=== PATIENT | male | born 1945 | race Caucasian/White ===

== ENCOUNTER 2018-05-14 16:08 | Emergency (ER) | payer MEDICARE ==
[2018-05-14 18:27] LABS: ABS Basophils 0.1 10^3/ul (0-0.2); ABS Eosinophils 0.1 10^3/ul (0-0.6); ABS Lymphocytes 2.3 10^3/ul (1.0-4.8); ABS Neutrophils 5.3 10^3/ul (1.5-7.7); ABS Nucleated RBC 0 10^3/ul; Eosinophil % 0.8 % (0-6); Hematocrit 43 % (42-52); Hemoglobin 14.6 g/dl (14.0-18.0); Lymphocyte % 26.1 % (25-47); Mean Corpuscular HGB Conc 34 g/dl (31-36); Mean Corpuscular Hemoglobin 30 pg (27-31); Mean Corpuscular Volume 87 fL (80-94); Mean Platelet Volume 7.5 um3 (7.4-10.4); Nucleated Red Blood Cells % 0; Platelet Count 245 10^3/ul (150-450); Red Blood Count 4.94 10^6/ul (4.00-5.40); Red Cell Distribution Width 13 % (10.5-15); White Blood Count 8.7 10^3/ul (3.5-10.8)
[2018-05-14 18:42] LABS: EGFR Non-African American 73.2 (>60)
[2018-05-14 21:00] LABS: Urine Appearance Clear; Urine Blood Negative (Negative); Urine Color Yellow; Urine Ketones Negative (Negative); Urine Protein Negative (Negative); Urine Specific Gravity 1.046 (1.010-1.030); Urine Urobilinogen Negative (Negative)
--- NOTE | 2018-05-14 21:00 | ED ---
Abdominal Pain/Male - HPI Summary HPI Summary: This pt is a 72 y/o male presenting to [facility] referred by Urgent Care for LLQ abd pain for the past 4 days. Pt reports he woke up 4 days ago with abd pain located on the left lower quadrant, slightly off to the left side of his belly button. His abd pain does not radiate. He states he had a CT abdomen/pelvis done today which showed inflammatory changes. Pt notes he has some abdominal distension. Denies fever, nausea, vomiting, urinary symptoms, constipation, diarrhea, decreased appetite. Denies any abdominal surgeries. No PMHx. - History of Current Complaint Chief Complaint: EDAbdPain Stated Complaint: LOWER ABD PAIN Time Seen by Provider: 05/14/18 20:50 Hx Obtained From: Patient Onset/Duration: Lasting Days, Still Present Timing: Lasting Days Severity Currently: Mild Pain Intensity: 3 Pain Scale Used: 0-10 Numeric Location: Discrete At: LLQ Radiates: No Aggravating Factor(s): Nothing Alleviating Factor(s): Nothing Associated Signs And Symptoms: Positive: Other - POS: abdomninal distension. Negative: Fever, Constipation, Urinary Symptoms, Decreased Appetite, Nausea, Vomiting, Diarrhea - Allergies/Home Medications Allergies/Adverse Reactions: Allergies Allergy/AdvReac Type Severity Reaction Status Date / Time No Known Allergies Allergy Verified 05/14/18 16:13 Home Medications: Home Medications Pravastatin Sodium 80 mg PO DAILY 05/14/18 [History Confirmed 05/14/18] PMH/Surg Hx/FS Hx/Imm Hx Endocrine/Hematology History: Denies: Hx Diabetes Cardiovascular History: Denies: Hx Hypertension, Hx Pacemaker/ICD Respiratory History: Denies: Hx Asthma, Hx Chronic Obstructive Pulmonary Disease (COPD) History: Denies: Hx Renal Disease Sensory History: Denies: Hx Hearing Aid Psychiatric History: Denies: Hx Panic Disorder Infectious Disease History: No Infectious Disease History: Denies: Traveled Outside the [place] in Last 30 Days - Family History Family History: mother with skin CA - Social History Alcohol Use: None Substance Use Type: Reports: None Smoking Status (MU): Never Smoked Tobacco Review of Systems Negative: Fever, Chills, Other - decreased appetite Positive: Abdominal Pain. Negative: Vomiting, Diarrhea, Nausea, Other - constipation Negative: dysuria, hematuria All Other Systems Reviewed And Are Negative: Yes Physical Exam - Summary Physical Exam Summary: Appearance: Well-appearing, Well-nourished, lying in bed comfortably Skin: Warm, dry, no obvious rash Eyes: sclera anicteric, no conjunctival pallor ENT: mucous membranes moist, pharynx appears normal Neck: Supple, nontender Respiratory: Clear to auscultation, no signs of respiratory distress Cardiovascular: Normal S1, S2. No murmurs. Normal distal pulses in tibial and radial bilaterally. Abdomen: Soft, tenderness to light palpation on left of umbilicus, normal active bowel sounds present Musculoskeletal: Normal, Strength/ROM Intact Neurological: A&Ox3, awake and alert, mentation is normal, speech is fluent and appropriate Psychiatric: affect is normal, does not appear anxious or depressed Triage Information Reviewed: Yes Vital Signs On Initial Exam: Initial Vitals Temp Pulse Resp BP Pulse Ox 97.4 F 86 16 174/97 95 05/14/18 16:10 05/14/18 16:10 05/14/18 16:10 05/14/18 16:10 05/14/18 16:10 Vital Signs Reviewed: Yes Diagnostics - Vital Signs Vital Signs Temp Pulse Resp BP Pulse Ox 05/14/18 20:30 97.2 F 65 16 169/87 97 05/14/18 18:58 98.2 F 74 16 166/82 95 05/14/18 16:10 97.4 F 86 16 174/97 95 - Laboratory Lab Results: Lab Results 05/14/18 05/14/18 05/14/18 Range/Units 18:05 18:06 18:06 WBC 8.7 (3.5-10.8) 10^3/ul RBC 4.94 (4.00-5.40) 10^6/ul Hgb 14.6 (14.0-18.0) g/dl Hct 43 (42-52) % MCV 87 (80-94) fL MCH 30 (27-31) pg MCHC 34 (31-36) g/dl RDW 13 (10.5-15) % Plt Count 245 (150-450) 10^3/ul MPV 7.5 (7.4-10.4) um3 Neut % (Auto) 61.5 (38-83) % Lymph % (Auto) 26.1 (25-47) % Archer % (Auto) 10.9 H (0-7) % Eos % (Auto) 0.8 (0-6) % Baso % (Auto) 0.7 (0-2) % Absolute Neuts (auto) 5.3 (1.5-7.7) 10^3/ul Absolute Lymphs (auto) 2.3 (1.0-4.8) 10^3/ul Absolute Monos (auto) 1.0 H (0-0.8) 10^3/ul Absolute Eos (auto) 0.1 (0-0.6) 10^3/ul Absolute Basos (auto) 0.1 (0-0.2) 10^3/ul Absolute Nucleated RBC 0 10^3/ul Nucleated RBC % 0 Sodium 139 (135-145) mmol/L Potassium 4.4 (3.5-5.0) mmol/L Chloride 101 (101-111) mmol/L Carbon Dioxide 31 (22-32) mmol/L Anion Gap 7 (2-11) mmol/L BUN 15 (6-24) mg/dL Creatinine 1.00 (0.67-1.17) mg/dL Est GFR ( Amer) 88.6 (>60) Est GFR (Non-Af Amer) 73.2 (>60) BUN/Creatinine Ratio 15.0 (8-20) Glucose 120 H (70-100) mg/dL Lactic Acid 1.5 (0.5-2.0) mmol/L Calcium 9.4 (8.6-10.3) mg/dL Total Bilirubin 0.50 (0.2-1.0) mg/dL AST 19 (13-39) U/L ALT 24 (7-52) U/L Alkaline Phosphatase 86 (34-104) U/L C-Reactive Protein 20.81 H (<8.01) mg/L Total Protein 7.2 (6.4-8.9) g/dL Albumin 4.3 (3.2-5.2) g/dL Globulin 2.9 (2-4) g/dL Albumin/Globulin Ratio 1.5 (1-3) Lipase 61 (11.0-82.0) U/L Result Diagrams: 05/14/18 18:06 05/14/18 18:06 Lab Statement: Any lab studies that have been ordered have been reviewed, and results considered in the medical decision making process. - CT CT abd/pelvis from [facility] CT Interpretation: Positive (See Comments) - IMPRESSION: 1. There is focal area of inflammatory change of the omental fat to the left of midline at the level of the umbilicus. 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 2. There is no obstruction. 3. Fatty infiltration of the liver. Dr. Galvin has reviewed this report. CT Interpretation Completed By: Radiologist Abdominal Pain Fem Course/Dx - Course Course Of Treatment: Pt is a 72 y/o male who presents for LLQ abd pain for the past [address] abdomen/pelvis shows there is focal area of inflammatory change of the omental fat to the left of midline at the level of the umbilicus. 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 I discussed pt care with Dr. Rose, surgeon, who will see him in his office tomorrow. - Diagnoses Provider Diagnoses: Fat necrosis of omentum - Provider Notifications Discussed Care Of Patient With: Jose Rose Time Discussed With Above Provider: 21:03 Instructed by Provider To: Other - Discussed with Dr. Rose, surgeon. Discharge - Sign-Out/Discharge Documenting (check all that apply): Patient Departure - Discharge - Discharge Plan Condition: Good Disposition: HOME Patient Education Materials: Acute Abdominal Pain (ED) Referrals: Jose Rose MD [Medical Doctor] - Additional Instructions: Dr. Rose can see you in the office tomorrow to follow you through this illness , but it generally does not require an operation unless the pain is uncontrollable otherwise or it does not go away after a reasonable period of observation. - Billing Disposition and Condition Condition: GOOD Disposition: Home - Attestation Statements Document Initiated by Harshad: Yes Documenting Scribe: Lori Goodman Provider For Whom Harshad is Documenting (Include Credential): Butch Galvin MD Scribe Attestation: Lori Jerome scribed for Butch Galvin MD on 05/15/18 at 0325. Scribe Documentation Reviewed: Yes Provider Attestation: The documentation as recorded by the Lori bender accurately reflects the service I personally performed and the decisions made by me, Butch Galvin MD
[2018-05-14 21:25] VITALS: BP 162/87
== END 2018-05-14 21:20 | disposition home or self-care (01) ==
LOC: ED 16:08
DX: K65.4 Sclerosing mesenteritis (principal); R10.32 Left lower quadrant pain
CPT/HCPCS: 36415; 80053; 81003; 83605; 83690; 85025; 86140; 99282

== ENCOUNTER 2019-06-29 04:05 | Emergency (ER) | payer MEDICARE ==
--- OUTSIDE RECORDS SUMMARY | 2019-06-29 04:19 | XMS REPORT | Continuity of Care Document ---
:1945 External Reference #:[id number] Author Name ROMMEL Cordoba Address [address] [place] [address] Care Team Providers Name Role Phone [facility] Utilization [employer]er Care Team Information Hospice Massage Therapist [phone] - Health Educator Herberth Norton MD - Family Medicine Care Team Information Hospice Massage Therapist [facility] - Allergy & Care Team Information Hospice Massage Therapist [phone] Immunology Problems Active Problems Provider Date Hyperlipidemia Herberth Norton M.D. Onset: 09/15/2007 Disorder of eye ROMMEL Cordoba Onset: 11/11/2016 Social History Type Date Description Comments Sex Unknown Tobacco Use Start: Unknown Nonsmoker ETOH Use Social Alcohol Tobacco Use Start: Unknown End: Unknown Patient is a former smoker Allergies, Adverse Reactions, Alerts Description No Known Drug Allergies Medications Active Medications SIG Qnty Indications Ordering Provider Date Pravastatin Sodium Take 2 Tablets 180tabs Herberth Norton, 09/21/2015 40mg By Mouth Every M.D. Tablets Day Immunizations CPT Code Status Date Vaccine Lot # [id number] Given 05/07/2019 Influenza Vac, Quadriv[place], [place] [id number] Given 06/11/2018 High-Dose, Influenza Virus Vacccine-fluzone 65 and older 32068 Given 06/05/2017 Tetanus And Diptheria Adult Preservative Free [id number] >7Yrs 22217 Given 06/05/2017 High-Dose, Influenza Virus Vacccine-fluzone 65 and [id number] older 74572 Given 06/29/2015 Pneumococcal Conjugate Vacc-13 [id number] 71490 Given 06/29/2015 High-Dose, Influenza Virus Vacccine-fluzone 65 and [id number] older Q2038 Given 06/16/2014 Split Influenza Medicare: Fluzone [id number] Q2038 Given 05/07/2012 Split Influenza Medicare: Fluzone [id number] Q2038 Given 06/13/2011 Split Influenza Medicare: Fluzone [id number] 29778 Given 02/04/2011 Pneumococcal Immunization [id number] 75720 Given 06/04/2007 Tdap Tetanus, W Pertussis [id number] 52417 Given 06/04/2007 DO Not Use Split Influenza Virus Vaccine 78922 Given 06/26/2006 DO Not Use Split Influenza Virus Vaccine 40976 Given 06/09/2003 DO Not Use Split Influenza Virus Vaccine 50128 Given 06/09/2003 DO Not Use Split Influenza Virus Vaccine Vital Signs Date Vital Result Comment 06/11/2019 11:13am BP Systolic 128 mmHg BP Diastolic 78 mmHg Heart Rate 80 /min Body Temperature 97.9 F Respiratory Rate 17 /min Weight 208.00 lb 05/14/2018 11:08am BP Systolic 138 mmHg BP Diastolic 62 mmHg Heart Rate 72 /min Body Temperature 97.6 F Respiratory Rate 16 /min Results Test Date Facility Test Result H/L Range Note Laboratory test 06/10/2019 [facility] PSA Diagnostic 3.295 ng/mL 0-4.0 1 finding Comprehensive 02/18/2019 [facility](fma) Sodium 142 mEq/L 134-149 Metabolic Prof Potassium 4.2 mEq/L 3.6-5.5 Chloride 101 mEq/L 94-112 Carbon Dioxide 24 mEq/L 21-32 Glucose 93 mg/dL 70-105 BUN 20 mg/dL 6-26 Creatinine 0.9 mg/dL 0.6-1.4 BUN/Creat Ratio 22.2 CALC 8.0-36.0 Calcium 9.0 mg/dL 8.6-10.2 Total Protein 6.9 g/dL 6.4-8.3 Albumin 4.5 g/dL 3.8-5.5 Globulin 2.4 g/dL 2.0-4.8 A/G Ratio 1.9 CALC 0.6-2.3 Alk. Phosphatase 71 U/L 22-95 Alt (SGPT) 22 U/L 7-35 Ast (Sgot) 18 U/L 5-34 Total Bilirubin 0.3 mg/dL 0.2-1.3 GFR Non- >60 ml/min/1.73m^ >=60 GFR >60 ml/min/1.73m^ >=60 Lipid Profile 02/18/2019 [facility](fma) Cholesterol 192 mg/dL 120- 200 Triglycerides 250 mg/dL High 30-200 HDL Cholesterol 47 mg/dL 30-70 LDL (Calculated) 95 CALC 0-129 VLDL Cholesterol 50 mg/dL 0-50 HDL Risk Factor 4.1 CALC 0.0-4.4 1 Serum levels of PSA measured using the [employer] DXI Hybritech immunoassay should not be interpreted as absolute evidence of the presence or absence of disease. The PSA value should be used in conjunction with other pertinent clinical diagnostic procedures. The values obtained with different assay methods or kits cannot be used interchangeably. Procedures Date Code Description Status 12/22/2017 28861096 Colonoscopy Completed 11/20/2012 17487317 Colonoscopy Completed 06/25/2007 49462337 Colonoscopy Completed Medical Devices Description No Information Available Encounters Description No Information Available Assessments Date Code Description Provider 06/11/2019 R23.8 Other skin changes ARETHA CordobaP 06/11/2019 L20.82 Flexural eczema ARETHA CordobaP 02/18/2019 E78.5 Hyperlipidemia, unspecified Herberth Norton M.D. Plan of Treatment 06/11/2019 - Sendy Leos, FNPR23.8 Other skin changesComments:stitch gluesilicone dressinga&d ointment with cotton socks at nightcall FRANCOIS if condition changes/worsens in any wayL20.82 Flexural eczemaAllComments: Medication Management Patient Understands medications he 's taking? Yes No Are there Barriers to Adherence? Yes No Has the patient been asked about herbal supplements and therapies, andOTC meds? Yes No As always, we strongly encourage a healthy diet and making physical activity a part of your every day life. If you have questions about how or where to start, please contact the office. Functional Status Description No Information Available Mental Status Description No Information Available Referrals Description No Information Available
[2019-06-29] MEDS ORDERED: NS 0.9% 1000 ML** 2,000 ML IV ONE (06:24)
--- NOTE | 2019-06-29 06:30 | ED ---
Nausea/Vomiting/Diarrhea HPI - HPI Summary HPI Summary: 73 males presenting to the ED today with a CC of nausea/vomiting/diarrhea which began on Friday (06/26/19). Pt states he was eating a "TV dinner" and then shortly after began having symptoms. Pt reports 4-5 bouts of diarrhea daily since then, and vomiting twice this morning. Pt endorses weakness since this morning. Pt denies fever, chest pain, SOB, pain with urination, blood or pus in the stool. - History of Current Complaint Chief Complaint: EDNauseaVomitDiarrh Stated Complaint: CANT KEEP FOOD DOWN PER PT Time Seen by Provider: 06/29/19 06:03 Hx Obtained From: Patient Onset/Duration: Lasting Days, Still Present Timing: Intermittent Episodes Lasting: Severity Initially: Mild Severity Currently: None Pain Intensity: 2 Pain Scale Used: 0-10 Numeric Location: Discrete At: RLQ Character: Dull Aggravating Factor(s): Nothing Alleviating Factor(s): Nothing, Antacids - experienced releif with peptobismol Nausea/Vomiting Presence: None Vomiting Frequency: Daily - twice this morning. Nausea/Vomiting Duration: 0-12 hours Diarrhea Presence: Yes Diarrhea Frequency: Daily Diarrhea Characteristics: Watery - Risk Factors Influenza Risk Factors: Age 65 y/o or Older Surgical Obstruction Risk Factor(s): Negative - Allergies/Home Medications Allergies/Adverse Reactions: Allergies Allergy/AdvReac Type Severity Reaction Status Date / Time No Known Allergies Allergy Verified 06/29/19 04:12 PMH/Surg Hx/FS Hx/Imm Hx Endocrine/Hematology History: Denies: Hx Diabetes Cardiovascular History: Denies: Hx Hypertension, Hx Pacemaker/ICD Respiratory History: Denies: Hx Asthma, Hx Chronic Obstructive Pulmonary Disease (COPD) History: Denies: Hx Renal Disease Sensory History: Denies: Hx Hearing Aid Psychiatric History: Denies: Hx Panic Disorder Infectious Disease History: No Infectious Disease History: Denies: Traveled Outside the [place] in Last 30 Days - Family History Family History: mother with skin CA - Social History Alcohol Use: None Substance Use Type: Reports: None Smoking Status (MU): Never Smoked Tobacco Review of Systems Constitutional: Negative Positive: Fatigue. Negative: Fever, Chills Cardiovascular: Negative Negative: Palpitations, Chest Pain Respiratory: Negative Negative: Shortness Of Breath, Cough Gastrointestinal: Negative Positive: Abdominal Pain - 2/10 RLQ, Vomiting - x 2 this morning, Diarrhea - 4- 5 bouts daily x 3 days. Negative: Nausea Genitourinary: Negative Positive: no symptoms reported Musculoskeletal: Negative Skin: Negative Psychological: Normal All Other Systems Reviewed And Are Negative: Yes Physical Exam Triage Information Reviewed: Yes Vital Signs On Initial Exam: Initial Vitals Temp Pulse Resp BP Pulse Ox 98.3 F 112 15 123/79 97 06/29/19 04:10 06/29/19 04:10 06/29/19 04:10 06/29/19 04:10 06/29/19 04:10 Vital Signs Reviewed: Yes Appearance: Positive: Well-Appearing, Well-Nourished Skin: Positive: Warm, Skin Color Reflects Adequate Perfusion Head/Face: Positive: Normal Head/Face Inspection Eyes: Positive: Normal, EOMI, DIAMOND, Conjunctiva Clear Respiratory/Lung Sounds: Positive: Clear to Auscultation, Breath Sounds Present Cardiovascular: Positive: Normal, RRR, S1, S2 Abdomen Description: Positive: Nontender Bowel Sounds: Positive: Present Psychiatric: Positive: Normal AVPU Assessment: Alert Procedures - Sedation Patient Received Moderate/Deep Sedation with Procedure: No Diagnostics - Vital Signs Vital Signs Temp Pulse Resp BP Pulse Ox 06/29/19 05:50 99.6 F 98 120/77 93 06/29/19 05:49 99 94 06/29/19 04:10 98.3 F 112 15 123/79 97 - Laboratory Result Diagrams: 06/29/19 06:52 06/29/19 06:52 Lab Statement: Any lab studies that have been ordered have been reviewed, and results considered in the medical decision making process. Re-Evaluation - Re-Evaluation First Eval Re-Evaluation Time: 08:10 Change: Improved - Pt has received approx. 1 L of normal saline. He states his symptoms have improved slightly. Mg 1.6, he was repleated with 2g IV magnesium sulfate. Second Eval Re-Evaluation Time: 09:25 Change: Improved Comment: Pt continuing to improve. Received IV magnesium and normal saline. Naus/Vom/Diarrhea Course/Dx - Course Course Of Treatment: Pt was evaluated for 3 days of continuous nausea, vomiting and diarrhea. Pt was examined and labratoy studies were obtained. Vitals were noted and patient was tachycardic, likely due to dehydration form bouts of diarrhea. He was given 2L of normal saline for suspected dehydration. Labratory results showed pt had a low magnesium level (1.6) likely due to his vomiting and diarrhea. This was replaced using 2g of magnesium sulfate. Pt gave stool sample which will be examined for pathology. Pt is to follow up with PCP within 3 days for evaluation. - Differential Dx/Diagnosis Differential Diagnoses - Male: Gastroenteritis (Viral), Vomiting, Diarrhea Provider Diagnosis: Diarrhea Condition At Discharge: Stable Discharge ED - Sign-Out/Discharge Documenting (check all that apply): Patient Departure - Discharge Plan Condition: Stable Disposition: HOME Patient Education Materials: Acute Diarrhea (ED), Nutrition Tips for Relief of Diarrhea (ED) Print Language: HEBREW Referrals: Herberth Norton MD [Primary Care Provider] - 3 Days Additional Instructions: Return to activity as tolerated. Increase fluid intake to manage symptoms of diarrhea. You will receive results from the stool culture in 2-3 days. Return to the Emergency Department immediately if there are any new or worsening symptoms. Please follow up with your PCP in 2-3 days. - Billing Disposition and Condition Condition: STABLE Disposition: Home
[2019-06-29 07:10] LABS: ABS Lymphocytes 0.4 10^3/ul (1.0-4.8); ABS Monocytes 0.7 10^3/ul (0-0.8); ABS Neutrophils 5.9 10^3/ul (1.5-7.7); Hematocrit 46 % (42-52); Hemoglobin 15.4 g/dL (14.0-18.0); Lymphocyte % 6.4 %; Mean Corpuscular HGB Conc 34 g/dL (31-36); Mean Corpuscular Hemoglobin 29 pg (27-31); Mean Corpuscular Volume 87 fL (80-94); Mean Platelet Volume 7.7 fL (7.4-10.4); Platelet Count 189 10^3/uL (150-450); Red Blood Count 5.25 10^6 /uL (4.18-5.48); Red Cell Distribution Width 13 % (10-15)
[2019-06-29 07:23] LABS: Albumin 3.7 g/dL (3.2-5.2); Albumin/Globulin Ratio 1.7 (1-3); BUN/Creatinine Ratio 19.1 (8-20); C Reactive Protein 48.28 mg/L (<8.01); Calcium 8.4 mg/dL (8.6-10.3); EGFR African American 75.2 (>60); EGFR Non-African American 62.2 (>60); Globulin 2.2 g/dL (2-4); Magnesium 1.6 mg/dL (1.9-2.7); Total Bilirubin 0.4 mg/dL (0.2-1.0); Total Protein 5.9 g/dL (6.4-8.9)
[2019-06-29] MEDS ORDERED: Magnesium Sulfate 1 GM IV* 1 GM/100 ML BAG IV ONE (07:34)
[2019-06-29] MEDS ORDERED: Magnesium Sulfate 2 GM IV* 2 GM/50 ML BAG IVPB ONE (07:40)
[2019-06-29 12:16] VITALS: BP 131/75
== END 2019-06-29 12:35 | disposition home or self-care (01) ==
LOC: ED 04:05
DX: R19.7 Diarrhea, unspecified (principal); R11.2 Nausea with vomiting, unspecified; R53.1 Weakness
CPT/HCPCS: 36415; 80053; 83605; 83735; 85025; 86140; 87045; 87046; 87899; 96361; 96365; 96366; 99283; J3475

== ENCOUNTER 2019-07-06 09:58 | Observation (INO) | payer MEDICARE ==
--- OUTSIDE RECORDS SUMMARY | 2019-07-06 10:08 | XMS REPORT | Continuity of Care Document ---
:1945 External Reference #:[id number] Author Name Rama Kidd O.D. Address [address] [place] [address] Care Team Providers Name Role Phone Herberth Norton M.D. 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 Onset: 11/07/2016 Nuclear senile cataract Rama Kidd O.D. Onset: 11/07/2016 Social History Type Date Description Comments Sex Unknown ETOH Use Currently consumes alcohol Tobacco Use Start: Unknown Patient has never smoked Recreational Drug Use Denies Drug Use Smoking Status Reviewed: 07/02/19 Patient has never smoked Allergies, Adverse Reactions, Alerts Description No Known Drug Allergies Medications Active Medications SIG Qnty Indications Ordering Provider Date Pravastatin Sodium Unknown 40mg Tablets Medications Administered in Office Medication SIG Qnty Indications Ordering Provider Date Alirio Patel 04/05/2003 Injection Immunizations Description No Information Available Vital Signs Description No Information Available Results Description No Information Available Procedures Date Code Description Status 04/29/2019 06687 Determination Of Refractive State Completed 04/29/2019 40081 Est Patient Comprehensive Exam Completed Medical Devices Description No Information Available Encounters Description No Information Available Assessments Date Code Description Provider 07/02/2019 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 04/29/2019 H25.13 Age-related nuclear cataract, bilateral Rama Kidd O.D. Plan of Treatment Future Appointment(s):04/27/2020 8:45 am - Rama Kidd O.D. at [facility], pc109/01/2018 - Rama Kidd O.D.H49.21 Sixth [abducent] nerve palsy, right eyeFollow up:1 Year Follow Up Functional Status Description No Information Available Mental Status Description No Information Available Referrals Description No Information Available
--- NOTE | 2019-07-06 10:41 | ED ---
Abdominal Pain/Male - HPI Summary HPI Summary: Pt is a 73 y/o M presenting to the ED with a chief complaint of abd pain. Pt states on 06/26/19 he developed lower abd pain described as a cramping, bloating feeling, like he ate too much but is still hungry. That night, pt began having diarrhea that continued over the next few days, with some associated nausea, vomiting, and thirst. Around 0300 on 06/29/19 he came into the ED and was found to be dehydrated. At this time patient was given IV fluids antibiotic and he felt very good when he was discharged. Patient states he was feeling great until this morning, when he woke up with similar abd pain. He reports mild nausea and diarrhea. No blood no blood. Patient tried to eat some fruit made him nauseous and he doesn't discontinue. He denies bloody or black stools, dysuria, malodorous urine, testicular pain, back pain, CP, SOB, or fever. Denies trauma. No abdominal history. Patient has had colonoscopies that have been unremarkable and a half. Patient also denies any recent tick bites, travel, or abx use. He notes there has been a high number of people at work with URIs. He has had acid reflux before, and last night he ate ham, potatoes, and corn. He did not eat today d/t decreased appetite. Medications reviewed. No blood thinners. - History of Current Complaint Chief Complaint: EDNauseaVomitDiarrh Stated Complaint: DHIARREAH/NAUSEA PER PT Time Seen by Provider: 07/06/19 10:26 Hx Obtained From: Patient Onset/Duration: Sudden Onset, Lasting Hours, Still Present Timing: Constant, Lasting Hours Severity Initially: Mild Severity Currently: None Pain Intensity: 0 Pain Scale Used: 0-10 Numeric Location: Suprapubic Radiates: No Character: Cramping, Other: - "full but hungry" Aggravating Factor(s): Nothing Alleviating Factor(s): Nothing Associated Signs And Symptoms: Positive: Decreased Appetite, Nausea, Diarrhea. Negative: Fever, Chest Pain, Back Pain, Blood in Stool, Urinary Symptoms - Allergies/Home Medications Allergies/Adverse Reactions: Allergies Allergy/AdvReac Type Severity Reaction Status Date / Time No Known Allergies Allergy Verified 07/06/19 10:03 PMH/Surg Hx/FS Hx/Imm Hx Previously Healthy: Yes Endocrine/Hematology History: Denies: Hx Anticoagulant Therapy, Hx Diabetes Cardiovascular History: Reports: Hx Hypercholesterolemia Denies: Hx Congestive Heart Failure, Hx Coronary Artery Disease, Hx Hypertension, Hx Pacemaker/ICD Respiratory History: Denies: Hx Asthma, Hx Chronic Obstructive Pulmonary Disease (COPD) History: Denies: Hx Renal Disease, Other Problems/Disorders - prostate issues Sensory History: Denies: Hx Hearing Aid Psychiatric History: Denies: Hx Panic Disorder - Surgical History Surgical History: None Infectious Disease History: No Infectious Disease History: Denies: Traveled Outside the [place] in Last 30 Days - Family History Known Family History: Positive: Other - parents CA, Non-Contributory Family History: mother with skin CA - Social History Occupation: Employed Full-time - [employer] Alcohol Use: None Hx Substance Use: No Substance Use Type: Reports: None Hx Tobacco Use: No Smoking Status (MU): Never Smoked Tobacco Review of Systems Positive: Other - decreased appetite. Negative: Fever Negative: Chest Pain Negative: Shortness Of Breath Positive: Abdominal Pain, Diarrhea, Nausea. Negative: Other - bloody or black stools Negative: dysuria, pain - testicular, other - malodorous urine Negative: Myalgia - back pain All Other Systems Reviewed And Are Negative: Yes Physical Exam - Summary Physical Exam Summary: Vital Signs Reviewed: Yes A+Ox3, no distress, tired appearing Eyes: Conjunctiva Clear, DIAMODN. EOM intact and full ENT: Hearing grossly normal TM x 2 clear, mmoist, uvula midline, no exudate, no erythema Neck: Positive: Supple Respiratory: Positive: No respiratory distress, No accessory muscle use + CTA throughout no w/r Cardiovascular: RRR nl s1, s2 no m/r CBT <2 sec abd soft + BS lower abdominal discomfort with direct palp, mild epigastric pain. no guarding, no rebound Musculoskeletal Exam: HENAO x 4 without difficulty Strength Intact, ROM Intact Neurological: Positive: Alert, + sensation throughout Psychological: Positive: Normal Response To examiner Skin: Positive: no rash, no ecchymosis Triage Information Reviewed: Yes Vital Signs On Initial Exam: Initial Vitals Temp Pulse Resp BP Pulse Ox 97.5 F 100 18 109/72 98 07/06/19 10:00 07/06/19 10:00 07/06/19 10:00 07/06/19 10:00 07/06/19 10:00 Vital Signs Reviewed: Yes Procedures - Sedation Patient Received Moderate/Deep Sedation with Procedure: No Diagnostics - Vital Signs Vital Signs Temp Pulse Resp BP Pulse Ox 07/06/19 10:00 97.5 F 100 18 109/72 98 - Laboratory Result Diagrams: 07/06/19 10:58 07/06/19 10:58 Lab Statement: Any lab studies that have been ordered have been reviewed, and results considered in the medical decision making process. - CT CT a/p CT Interpretation Completed By: Radiologist Summary of CT Findings: DISTENTION OF THE SMALL BOWEL WITHOUT DILATATION OR CLEAR TRANSITION POINT TO DECOMPRESSED SMALL BOWEL. THE DIFFERENTIAL INCLUDES ENTERITIS VERSUS EARLY OR PARTIAL SMALL BOWEL OBSTRUCTION. RECOMMEND ATTENTION ON FOLLOW-UP IMAGING. ATHEROSCLEROSIS. RIGHT HYDROCELE. ED physician has reviewed this report. Re-Evaluation - Re-Evaluation 1st re-eval Re-Evaluation Time: 11:41 Change: Improved Comment: Pt is drinking contrast. He is a bit cold. His nausea and abd pain are under control. had episode of cramping - declined analgsia at this time 2nd re-eval Re-Evaluation Time: 14:00 Change: Improved Comment: Pt is feeling better. I informed him of the CT a/p results and that Dr. Almanzar of general surgery will look at the CT scan d/t possible SBO. Pt aware and agreeable. Abdominal Pain Male Course/Dx - Course Course Of Treatment: Patient presents to urgent care with recurrent abdominal pain this morning. Patient states he was seen here approximately one week ago. Patient's time and lower abdominal pain, nausea, and vomiting. Patient states he was diagnosed as dehydrated and given fluids and antiemetic therapy states he felt much better. Patient is usually well until this morning when the pain began. Patient states he feels bloated and has discomfort. No fevers or chills. No analgesic taken,. Patient without complaints. On exam vital signs are stable. Patient appears somewhat tired. Patient has a tenderness across his lower abdomen as well as mild epigastric. We'll check labs and a urine. We'll give Pepcid and Maalox. Will give her fluid. We'll do CT. Patient comfortable. Patient has had CAT scans in the past without problems. Patient's never had abdominal surgery. - Diagnoses Provider Diagnoses: Abdominal pain Discharge ED - Sign-Out/Discharge Documenting (check all that apply): Patient Departure - Discharge Plan Condition: Stable Disposition: ADMITTED TO [facility] Referrals: Herberth Norton MD [Primary Care Provider] - - Billing Disposition and Condition Condition: STABLE Disposition: Admitted to [facility] - Attestation Statements Document Initiated by Scribe: Yes Documenting Scribe: Rhina Verde Provider For Whom Scribe is Documenting (Include Credential): Sandrita Perez MD. Scribe Attestation: Rhina Jerome, scribed for Sandrita Perez MD. on 07/06/19 at 1430. Scribe Documentation Reviewed: Yes Provider Attestation: The documentation as recorded by the Rhina bender accurately reflects the service I personally performed and the decisions made by , Sandrita Perez MD. Status of Scribe Document: Viewed Consult Consult: 1413 - I spoke with Dr. Almanzar who states the pt is not likely to have an SBO , and OBV admit may be better suitable for the pt. 1416 - I spoke with Dr. Banuelos who accepts pt for OBV admission.
[2019-07-06] MEDS ORDERED: NS 0.9% 1000 ML** 1,000 ML IV ONE (10:46)
[2019-07-06] MEDS ORDERED: Famotidine IV* 10 MG/ML 2 ML (20 mg) IV SLOW PU ONE (10:50)
[2019-07-06] MEDS ORDERED: Al Hydrox/Mg Hydrox/Simet LIQ* 30 ML UDC PO ONE (10:50)
[2019-07-06 11:16] LABS: Hematocrit 45 % (42-52); Hemoglobin 15.1 g/dL (14.0-18.0); Mean Corpuscular HGB Conc 33 g/dL (31-36); Mean Corpuscular Hemoglobin 29 pg (27-31); Mean Corpuscular Volume 87 fL (80-94); Mean Platelet Volume 7.3 fL (7.4-10.4); Platelet Count 278 10^3/uL (150-450); Red Blood Count 5.21 10^6 /uL (4.18-5.48); Red Cell Distribution Width 13 % (10-15); White Blood Count 16.1 10^3/uL (3.5-10.8)
[2019-07-06 11:19] LABS: ABS Lymphocytes 0.8 10^3/ul (1.0-4.8); ABS Monocytes 1.2 10^3/ul (0-0.8); ABS Neutrophils 14.3 10^3/ul (1.5-7.7); Eosinophil % 0.1 %
[2019-07-06 11:52] LABS: Albumin 3.7 g/dL (3.2-5.2); Albumin/Globulin Ratio 1.5 (1-3); BUN/Creatinine Ratio 21.1 (8-20); Calcium 8.7 mg/dL (8.6-10.3); EGFR Non-African American 62.8 (>60); Globulin 2.5 g/dL (2-4); Potassium 4.8 mmol/L (3.5-5.0); Total Bilirubin 0.6 mg/dL (0.2-1.0); Total Protein 6.2 g/dL (6.4-8.9)
[2019-07-06] MEDS ORDERED: Iohexol 300* (CONTRAST) 10 ML SDV IV ONE (12:19)
[2019-07-06 13:51] LABS: Urine Appearance Clear; Urine Bilirubin Negative (Negative); Urine Blood Negative (Negative); Urine Color Yellow; Urine Glucose Negative (Negative); Urine Ketones Negative (Negative); Urine Nitrite Negative (Negative); Urine Protein Negative (Negative); Urine Specific Gravity 1.035 (1.010-1.030); Urine Urobilinogen Negative (Negative)
[2019-07-06] MEDS ORDERED: NS 0.9% 1000 ML** 1,000 ML IV SCH ×2 (14:30→16:15)
--- NOTE | 2019-07-06 16:53 | HP ---
History of Present Illness - History of Present Illness Reason for Visit: Diarrhea History of Present Illness: This is a 73 y/o M otherwise healthy presented with acute onset of diarrhea. He was apparently well 10 days ago when he had diarrhea while he was at work. He ate pre-made salad at lunch and then at around 3:00 PM he started having watery stool without any blood and was associated with nausea and one episode of vomiting. Then he came to ED and was given IV fluids and was discharged. After that his vomiting subsided and he was feeling good but was having loose stool. Then yesterday he ate salad at lunch and felt bloated and had abdominal discomfort. He had 4-6 bowel movement last night which was watery and he did not notice any blood. He reports having nausea but denies having vomiting, fever and abdominal pain. He has fatigue, chills and generalized abdominal discomfort. He denies exposure to people with diarrhea, recent travel or abx, tick bites, headache, weakness, cramping, numbness and tingling. He does report of nocturia but denies increased frequency and burning micturition. He denies weight loss, recurrent flushing, palpitation, tremor, heat intolerance and exposure to pets. In ED His vitals were stable; although mild tachycardia. Blood work showed Neutrophilic leucocytosis with slight elevation in BUN/creatinine ratio and normal electrolytes. CT abdomen showed distension of small bowel with possibility of enteritis or early SBO. On his last ED visit on 06/29/2019 stool culture was done and was negative. - Past Medical History Past Medical History: 1. Lactose intolerance 2. Eczema 3. Hyperlipidemia - Past Surgical History Past Surgical History: None - Past Family History Past Family History: Noncontributory. Has 3 children and all are healthy. 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 He denies drinking alcohol, smoking and using other recreational drug. His PCP is Dr. Norton. His HCP is his younger son Oneil Kirkland([phone]). He is full code. Review of Systems - Review of Systems Constitutional: Positive: Chills, Malaise, Other - Fatigue. Negative: Fever, Sweats, Weakness Eyes: Negative: Pain, Vision Change, Conjunctivae Inflammation, Eyelid Inflammation, Redness, Other ENT: Negative: Ear Pain, Ear Discharge, Nose Pain, Nose Discharge, Nose Congestion, Mouth Pain, Mouth Swelling, Throat Pain, Throat Swelling, Other Respiratory: Negative: Cough, Dry, Shortness of Breath, Hemoptysis, SOB with Excertion, Pleuritic Pain, Sputum, Wheezing Cardiovascular: Positive: Light Headedness. Negative: Chest Pain, Palpitations , Orthopnea, Paroxysmal Noc. Dyspnea, Edema, Other Gastrointestinal: Positive: Nausea, Abdominal Pain, Diarrhea. Negative: Vomiting, Constipation, Melena, Hematochezia, Other Genitourinary: Positive: Other - Nocturia. Negative: Dysuria, Frequency, Incontinence, Hematuria, Retention Musculoskeletal: Negative: Neck Pain, Shoulder Pain, Arm Pain, Back Pain, Hand Pain, Leg Pain, Foot Pain, Other Skin: Negative: Rash, Lesions, Adonis, Bruising, Other Neurological: Negative: Weakness, Numbness, Incoordination, Change in Speech, Confusion, Seizures, Other - Medications/Allergies Allergies/Adverse Reactions: Allergies Allergy/AdvReac Type Severity Reaction Status Date / Time No Known Allergies Allergy Verified 07/06/19 10:03 Medications: Current Medications Enoxaparin Sodium (Lovenox(*)) 40 mg SUBCUT Q24H [facility] Sodium Chloride (Ns 0.9% 1000 Ml) 1,000 mls @ 125 mls/hr IV PER RATE [facility] Stop: 07/08/19 00:14 Non-Formulary Medication (Pravastatin Sodium [Pravastatin Sodium]) 80 mg PO DAILY [facility] Exam Vital Signs: Vital Signs (72 hours) 07/06/19 07/06/19 07/06/19 10:00 10:21 10:23 Temperature 97.5 F Pulse Rate 100 101 99 Respiratory 18 Rate Blood Pressure 109/72 120/72 (mmHg) O2 Sat by Pulse 98 95 92 Oximetry 07/06/19 07/06/19 07/06/19 10:51 11:00 11:21 Temperature Pulse Rate 101 98 100 Respiratory Rate Blood Pressure 123/73 153/91 (mmHg) O2 Sat by Pulse 91 94 95 Oximetry 07/06/19 07/06/19 07/06/19 11:44 11:51 12:00 Temperature 97.6 F Pulse Rate 94 97 Respiratory Rate Blood Pressure 145/81 (mmHg) O2 Sat by Pulse 96 95 Oximetry 07/06/19 07/06/19 07/06/19 12:21 12:51 13:00 Temperature Pulse Rate 101 102 105 Respiratory Rate Blood Pressure 132/77 135/79 (mmHg) O2 Sat by Pulse 94 95 96 Oximetry 07/06/19 07/06/19 07/06/19 13:51 14:00 14:21 Temperature Pulse Rate 103 105 103 Respiratory Rate Blood Pressure 128/76 146/79 (mmHg) O2 Sat by Pulse 95 95 93 Oximetry Exam: Patient is lying on a bed in supine position and is not in acute distress. HEENT: Normocephalic and atraumatic. Sclera anicteric. EOMI. PERRLA. Tongue is moist. Neck: No lymphadenopathy and enlarged thyroid. NO JVD elevation. Lungs: Good respiratory effort and chest expansion. Clear with no added sound. Heart: Normal in rate and rhythm. S1/S2 heard with no murmur, rubs or gallops. Abdomen: Soft, nondistended and nontender. Increased BS heard in all four quadrants. Extremities; No swelling, cyanosis or clubbing Neuro: Alert, oriented and coperative. CN intact. Motor normal and sensation intact. Assessment/Plan - Assessment/Plan Assessment: 73 y/o M otherwise healthy presented with acute onset watery diarrhea associated with nausea and fatigue and was noted to have tachycardia and neutrophilic leucocytosis. Plan: 1. Diarrhea- Acute onset with no blood. More likely viral gastroenteritis. He denies antibiotic or PPI use recently; although could be C. difficle. He denies abdominal pain less likely pancreatitis. He denies weight loss and flushing and night sx so less likly malignancy like carcinoid. He has mild tachycardia which could be from dehydration. We will give him IV fluids. we will send C. diff PCR , stool lactoferrin. we will check his CBC(for leucocytosis) and BMP( electrolyte abnormalities) tomorrow. 2. Hyperlipidemia: Continue Pravastatin. We will also send lipid profile tomorrow along with A1C. 3. DVT prophylaxis- On lovenox 4. Diet- NPO. We will slowly advance his diet. 5. Full code Attestation Documenting Resident: Garry Harris Supervising Physician: Anastasia Suárez Attending/Supervising Physician Comment: Attending Addendum: Agree with excellent R1 H&P, 73M immunocompetent with acute persistent diarrhea x [address] nonspecific, r/o C Diff and treat with supportive care at this time. Attestation: This service has been performed in part by a resident under the direction of a teaching physician.I, Anastasia Suárez, performed the service, or was physically present during the critical, or golden portions of the service, furnished by the resident. I participated in the management of the patient.
[2019-07-06] MEDS ORDERED: Enoxaparin(*) 40 MG/0.4 ML SYR SUBCUT SCH (18:00)
[2019-07-06] MEDS: NS 0.9% 1000 ML** 1,000 ML IV SCH (18:38)
[2019-07-07] MEDS: NS 0.9% 1000 ML** 1,000 ML IV SCH (01:05)
[2019-07-07] MEDS ORDERED: Ondansetron INJ* 2 MG/ML VIAL IV PRN (01:19)
--- NOTE | 2019-07-07 06:32 | PN ---
Subjective Date of Service: 07/07/19 Interval History: HD 2 on 07/07 73 y/o M otherwise healthy immunocompetent presented with acute onset watery diarrhea associated with nausea and fatigue and was noted to have tachycardia and neutrophilic leucocytosis. No acute overnight events. Vitals stable Had 6-8 episodes of diarrhea since yesterday-watery, no blood Had episode of vomiting this morning Denies cramps, abdominal pain and lightheadedness Objective Active Medications: Atorvastatin Calcium (Lipitor*) 20 mg PO DAILY [facility] Enoxaparin Sodium (Lovenox(*)) 40 mg SUBCUT Q24H [facility] Last Admin: 07/06/19 18:38 Dose: 40 mg Sodium Chloride (Ns 0.9% 1000 Ml) 1,000 mls @ 150 mls/hr IV PER RATE [facility] Stop: 07/07/19 23:50 Last Admin: 07/07/19 01:05 Dose: 150 mls/hr Ondansetron HCl (Zofran Inj*) 4 mg IV Q6H PRN PRN Reason: NAUSEA/VOMITING Last Admin: 07/07/19 02:23 Dose: 4 mg Vital Signs - 8 hr 07/06/19 07/07/19 23:15 03:02 Temperature 98.0 F 98.5 F Pulse Rate 100 87 Respiratory 20 20 Rate Blood Pressure 121/68 114/67 (mmHg) O2 Sat by Pulse 94 96 Oximetry Oxygen Devices in Use Now: None Exam: Patient is lying on a bed in supine position and is not in acute distress. HEENT: Normocephalic and atraumatic. Sclera anicteric. EOMI. PERRLA. Tongue is moist. Neck: No lymphadenopathy and enlarged thyroid. NO JVD elevation. Lungs: Good respiratory effort and chest expansion. Clear with no added sound. Heart: Normal in rate and rhythm. S1/S2 heard with no murmur, rubs or gallops. Abdomen: Soft, nondistended and nontender. Increased BS heard in all four quadrants. Extremities; No swelling, cyanosis or clubbing Neuro: Alert, oriented and coperative. CN intact. Motor normal and sensation intact. Result Diagrams: 07/07/19 07:57 07/07/19 07:57 Assess/Plan/Problems-Billing Assessment: 73 y/o M otherwise healthy immunocompetent presented with acute onset watery diarrhea associated with nausea and fatigue and was noted to have tachycardia and neutrophilic leucocytosis. c. diff negative - Patient Problems (1) Diarrhea Current Visit: Yes Status: Acute Code(s): R19.7 - DIARRHEA, UNSPECIFIED SNOMED Code(s): 52222852 Comment: -Acute persistent -no fever and abdominal pain -assicated with nausea and vomiting -similar episode 10 days ago -WBC normal - C. diff negative -CT shows Small bowel distension with possibility of enteritis and early SBO -We think this is gastroenteritis -No signs of dehydration -We will give IVF and probiotics and send stool culture (2) Pre-diabetes Current Visit: Yes Status: Acute Code(s): R73.03 - PREDIABETES SNOMED Code (s): 763907431 Comment: -hbA1c 6.4 -counselled on lifestyle modification and follow up as an outpatient (3) Hyperlipidemia Current Visit: Yes Status: Acute Code(s): E78.5 - HYPERLIPIDEMIA, UNSPECIFIED SNOMED Code(s): 39989960 Comment: -On pravastatin (4) DVT prophylaxis Current Visit: Yes Status: Acute Code(s): Z29.9 - ENCOUNTER FOR PROPHYLACTIC MEASURES, UNSPECIFIED SNOMED Code(s): 544073810 Comment: -On lovenox (5) Full code status Current Visit: Yes Status: Acute Code(s): Z78.9 - OTHER SPECIFIED HEALTH STATUS SNOMED Code(s): 801892222 Status and Disposition: Observation -we are advancing his diet; if he tolerates well he will go home Attending: Anastasia Suárez Attestation Documenting Resident: Garry Harris Supervising Physician: Anastasia Mcfadden Attestation: This service has been performed in part by a resident under the direction of a teaching physician.I, Anastasia Mcfadden, performed the service, or was physically present during the critical, or golden portions of the service, furnished by the resident. I participated in the management of the patient.
[2019-07-07 08:06] LABS: ABS Lymphocytes 1.4 10^3/ul (1.0-4.8); ABS Monocytes 1.1 10^3/ul (0-0.8); ABS Neutrophils 5.3 10^3/ul (1.5-7.7); Eosinophil % 0.1 %; Hematocrit 42 % (42-52); Hemoglobin 14.1 g/dL (14.0-18.0); Lymphocyte % 17.9 %; Mean Corpuscular HGB Conc 34 g/dL (31-36); Mean Corpuscular Hemoglobin 29 pg (27-31); Mean Corpuscular Volume 87 fL (80-94); Mean Platelet Volume 6.9 fL (7.4-10.4); Platelet Count 243 10^3/uL (150-450); Red Cell Distribution Width 13 % (10-15); White Blood Count 7.9 10^3/uL (3.5-10.8)
[2019-07-07 08:28] LABS: BUN/Creatinine Ratio 19.8 (8-20); Calcium 7.5 mg/dL (8.6-10.3); EGFR African American 92.6 (>60); EGFR Non-African American 76.6 (>60); HDL Cholesterol 30.2 mg/dL; Potassium 4.1 mmol/L (3.5-5.0)
[2019-07-07] MEDS ORDERED: Atorvastatin* 20 MG TAB PO SCH (09:00)
[2019-07-07] MEDS ORDERED: Lactobacillus Acidophilus* 1 TAB PO SCH (13:00)
[2019-07-07 15:03] VITALS: BP 116/72
--- NOTE | 2019-07-07 17:04 | DS ---
CC: Dr. Herberth Norton DATE OF ADMISSION: 07/06/2019. DATE OF DISCHARGE: 07/07/2019. PRIMARY CARE PHYSICIAN: Dr. Herberth Norton. DISPOSITION AT THE TIME OF DISCHARGE: Patient will be discharged to home and is stable to do so. PRIMARY DIAGNOSIS: Gastroenteritis, nonspecific. Ruled out C. diff; ruled out small bowel obstruction. SECONDARY DIAGNOSES: Prediabetes, lactose intolerance, hyperlipidemia. MEDICATIONS AT THE TIME OF DISCHARGE: Pravastatin 80 mg p.o. daily and probiotic one capsule p.o. daily for an additional 14 days status post discharge. HISTORY OF PRESENT ILLNESS/HOSPITAL COURSE: 73-year-old healthy male with no real significant past medical history has presented to the emergency room twice in the last three weeks with acute diarrheal complaints. On first presentation to the emergency room which was ten days prior to 07/06/2019, around June 26, he had diarrhea while he was at work. He said that he had eaten a premade salad at lunch and then he started having watery stool without any blood or associated nausea directly after having that salad. He continued to have four to six bowel movements per day for about three days and thus decided to present to the emergency room. There he was given IV fluids. He had no leukocytosis and no concerning findings. He was discharged home with the diagnosis of viral gastroenteritis. His symptoms intermittently improved. Within again two days prior to this admission and to the point where he had normal bowel movements for one to two days, he then re-presented to the emergency room after he again ate a premade salad and started having bloating, cramping, and four to six bowel movements shortly after he ate a premade salad once again and presented back to the emergency room. In the ER, his vitals were stable. He had blood work that showed neutrophilic leukocytosis with slight elevation in BUN and creatinine ratio. A CT abdomen was done which showed distention of the small bowel with possible enteritis or an early SBO. Because of CT findings and a second presentation in two weeks, the Hospitalist team was asked to evaluate the patient and admit him under observation status. HOSPITAL COURSE BY PROBLEM: 1. Diarrhea: Leukocytosis and CT findings of possible ileus. The patient continued to have three to four liquid bowel movements while in the hospital. He was tested for C. diff in stool cultures which did not show any concerning findings and C. diff was negative. The patient was initially kept NPO and kept on IV fluids, although he did say that he endorsed hunger, thus we trialed him on clear liquids and a gentle diet which he was able to hold down which makes this much less likely to be a small bowel obstruction or a partial obstruction. He was started on a probiotic and counseled about low residue diet. His leukocytosis resolved by hospital day two. The differential overall includes viral gastroenteritis and possibly colitis, though he has no white count or fevers to suggest infectious colitis. His stool cultures did not support a preformed endotoxin and overall the treatment is supportive care route. He has had off and on diarrhea for 12 days which does not meet the criteria of chronic diarrhea and if this persists past four weeks, he should get a colonoscopy which he counseled and educated on on discharge. 2. Lactose intolerance: The patient avoids lactulose and does not think that this is one of the triggers. He is really unclear of what one of the triggers was, but does seem tied to these premade salads, which again may be a coincidence. On the day of discharge, the patient is tolerating diet and is ambulating and vital signs are stable. He is able to care for himself at home. LABS AND STUDIES DONE DURING THIS HOSPITAL: Labs on the day of discharge: White blood cell count 7.9, hemoglobin 14.1, hematocrit 42, platelets 243; sodium 138, potassium 4.1, chloride 109, carbon dioxide 27, BUN 19, creatinine 0.96, glucose 100, hemoglobin A1c was done which is 6.4. Imaging includes abdomen and pelvis CT which showed distention of the small bowel without dilatation or clear transition point, the differential which includes enteritis versus early or partial small bowel obstruction. Also noted is atherosclerosis and right hydrocele. CONSULTANTS DURING THIS HOSPITALIZATION: None. PHYSICAL EXAMINATION: Physical exam was done on the day of discharge and can be found in the progress note. ITEMS TO FOLLOW-UP ON STATUS POST DISCHARGE: Gastroenteritis. The patient has had negative C. diff, negative stool cultures and was able to tolerate diet. He has continued to have bowel movements which effectively rules out small bowel obstruction. This likely represents gastroenteritis, viral versus preformed toxin and his white count has slowly resolved with IV fluids and he remained afebrile. We counseled the patient to continue with a bland diet and to continue with probiotics if diarrhea continues past four weeks. He will need GI referral for colonoscopy to rule out more insidious causes of diarrhea, such as microscopic colitis. TIME SPENT: Thirty-five minutes were spent on the planning of this discharge with over half of that was spent directly at the bedside of the patient providing direct patient care. If there are any questions about the care of this patient, please do not hesitate to reach out and contact the Hospitalist team directly. [id number]/[facility] #: [id number] PAWAN
== END 2019-07-07 17:55 | disposition home or self-care (01) ==
LOC: ED 09:58 → MED 16:04
PROVIDERS: ADMIT Internal Medicine; ATTEND Internal Medicine
DX: K52.9 Noninfective gastroenteritis and colitis, unspecified (principal); R73.03 Prediabetes; E73.9 Lactose intolerance, unspecified; E78.5 Hyperlipidemia, unspecified; L30.9 Dermatitis, unspecified; R53.83 Other fatigue; R11.0 Nausea; E78.00 Pure hypercholesterolemia, unspecified; R10.9 Unspecified abdominal pain
CPT/HCPCS: 36415; 74177; 80048; 80053; 80061; 81003; 83036; 83630; 83690; 83735; 85025; 87045; 87046; 87493; 87899; 96361; 96372; 96374; 96375; 99285; A9270-GY; G0378; J1650; J2405; Q9967

== ENCOUNTER 2019-09-01 07:53 | Emergency (ER) | payer MEDICARE ==
--- OUTSIDE RECORDS SUMMARY | 2019-09-01 08:02 | XMS REPORT | Continuity of Care Document ---
:1945 External Reference #:[id number] Author Name Farideh Cardona PA-C Address [address] [place] [address] Care Team Providers Name Role Phone Herberth Norton MD - Family Medicine Care Team Information Manager Hospitality Problems Active Problems Provider Date Digestive symptom Farideh Cardona PA-C Onset: 07/27/2019 Generalized abdominal pain Farideh Cardona PA-C Onset: 07/27/2019 Social History Type Date Description Comments Sex Unknown Tobacco Use Start: Unknown End: Unknown Patient is a former smoker Smoking Status Reviewed: 07/27/19 Patient is a former smoker Allergies, Adverse Reactions, Alerts Description No Known Drug Allergies Medications Active Medications SIG Qnty Indications Ordering Provider Date Pravastatin Sodium Take 2 Tablets 180tabs Herberth Norton MD 09/21/2015 40mg By Mouth Every Tablets Day Immunizations Description No Information Available Vital Signs Date Vital Result Comment 07/27/2019 10:52am Height 70 inches 5'10" Weight 199.00 lb BP Systolic 137 mmHg BP Diastolic 68 mmHg Heart Rate 75 /min BMI (Body Mass Index) 28.6 kg/m2 10/13/2017 10:18am Height 71 inches 5'11" Weight 200.00 lb BMI (Body Mass Index) 27.9 kg/m2 Results Test Acquired Date Facility Test Result H/L Range Note Lab Results 07/19/2019 N2N/CCD Import C Reactive 3.57 mg/L 1, 2 Protein Comprehensive 07/19/2019 N2N/CCD Import Sodium 140 mEq/L 134-149 Metabolic Prof Potassium 4.6 mEq/L 3.6-5.5 Chloride 106 mEq/L 94-112 Carbon Dioxide 29 mEq/L 21-32 Glucose 86 mg/dL 70-105 BUN 10 mg/dL 6-26 Creatinine 1.0 mg/dL 0.6-1.4 BUN/Creat Ratio 10.0 CALC 8.0-36.0 Calcium 9.3 mg/dL 8.6-10.2 Total Protein 6.2 g/dL Low 6.4-8.3 3 Albumin 3.9 g/dL 3.8-5.5 Globulin 2.3 g/dL 2.0-4.8 A/G Ratio 1.7 CALC 0.6-2.3 Alk. Phosphatase 68 U/L 22-95 Alt (SGPT) 25 U/L 7-35 Ast (Sgot) 15 U/L 5-34 Total Bilirubin 0.4 mg/dL 0.2-1.3 GFR Non- >60 ml/min/1.73m^ GFR >60 ml/min/1.73m^ Lab Results 07/19/2019 N2N/CCD Import WBC 13.9 10^3/uL High 4.0-10.0 4 RBC 5.00 10^6/uL 3.93-6.00 HGB 14.7 g/dL 12.0-17.0 HCT 45 % 35-50 MCV 89.0 fL 80.0-95.0 MCH 29.4 pg 25.6-32.2 MCHC 33.0 g/dL 32.2-36.0 RDW-CV 12.4 % 11.6-14.4 PLT 312 10^3/uL 163-400 MPV 9.4 fL 9.4-12.4 Nick# 11.25 10^3/uL High 1.56-6.13 Lymph# 1.65 10^3/uL 1.18-3.74 Lincoln# 0.87 10^3/uL High 0.24-0.82 Eos # 0.1 10^3/uL 0.0-0.5 Baso # 0.04 10^3/uL 0.01-0.08 Nick% 80.8 % High 34.0-70.0 Lymph % 11.9 % Low 20.0-52.0 Lincoln% 6.3 % 5.0-12.0 Eos% 0.4 % Low 0.7-7.0 Baso% 0.3 % 0.1-1.2 Lipid Profile 07/19/2019 Shut Down/Compass Import Cholesterol 154 mg/dL 120-200 Triglycerides 143 mg/dL 30-200 HDL Cholesterol 52 mg/dL 30-70 LDL (Calculated) 73 CALC 0-129 VLDL Cholesterol 29 mg/dL 0-50 HDL Risk Factor 3.0 CALC 0.0-4.4 Lab Results 07/19/2019 Shut Down/Compass Import Hemoglobin A1c (Fma) 5.7 % 4.1- 5.7 Urinalysis Profile 07/06/2019 Think2 Import Urine Color Yellow Urine Appearance Clear Urine Specific [place] 1.035 1 High 1.010-1.030 Urine pH 5.0 1 5-9 Urine Urobilinogen Negative Urine Ketones Negative Urine Protein Negative Urine Leukocytes Negative Urine Blood Negative Urine Nitrite Negative Urine Bilirubin Negative Urine Glucose Negative CBC Auto Diff 07/06/2019 Think2 Import White Blood 16.1 10^3/uL High 3.5 -10.8 Count Red Blood Count 5.21 10^6/uL 4.18-5.48 Hemoglobin 15.1 g/dL 14.0-18.0 Hematocrit 45 % 42-52 Mean Corpuscular Volume 87 fL 80-94 Mean Corpuscular Hemoglobin 29 pg 27-31 Mean Corpuscular HGB Conc 33 g/dL 31-36 Red Cell Distribution Width 13 % 10-15 Platelet Count 278 10^3/uL 150-450 Mean Platelet Volume 7.3 fL Low 7.4-10.4 Abs Neutrophils 14.3 10^3/uL High 1.5-7.7 Abs Lymphocytes 0.8 10^3/uL Low 1.0-4.8 Abs Monocytes 1.2 10^3/uL High 0-0.8 Abs Eosinophils 0.0 10^3/uL 0-0.6 Abs Basophils 0.0 10^3/uL 0-0.2 Abs Nucleated RBC 0.0 10^3/uL Granulocyte % 87.2 % Lymphocyte % 5.0 % Monocyte % 7.5 % Eosinophil % 0.1 % Basophil % 0.2 % Nucleated Red Blood Cells % 0.0 1 Comp Metabolic Panel 07/06/2019 Shut Down/Compass Import Sodium 137 mmol/L 135- 145 Potassium 4.8 mmol/L 3.5-5.0 Chloride 104 mmol/L 101-111 Co2 Carbon Dioxide 28 mmol/L 22-32 Anion Gap 5 mmol/L 2-11 Glucose 126 mg/dL High 70-100 Blood Urea Nitrogen 24 mg/dL 6-24 Creatinine 1.14 mg/dL 0.67-1.17 BUN/Creatinine Ratio 21.1 1 High 8-20 Calcium 8.7 mg/dL 8.6-10.3 Total Protein 6.2 g/dL Low 6.4-8.9 Albumin 3.7 g/dL 3.2-5.2 Globulin 2.5 g/dL 2-4 Albumin/Globulin Ratio 1.5 1 1-3 Total Bilirubin 0.60 mg/dL 0.2-1.0 Alkaline Phosphatase 72 U/L 34-104 Alt 31 U/L 7-52 Ast 16 U/L 13-39 Egfr Non- 62.8 1 Egfr 76.0 1 5 Lab Results 07/06/2019 N2N/CCD Import Lipase 26 U/L 11.0-82.0 Magnesium 2.0 mg/dL 1.9-2.7 Lab Results 06/29/2019 N2N/CCD Import Stool Culture See Result 6 Below Lab Results 06/29/2019 N2N/CCD Import Lactic Acid 1.1 mmol/L 0.5-2.0 7 Comp Metabolic 06/29/2019 N2N/CCD Import Sodium 137 mmol/L 135-145 Panel Potassium 4.0 mmol/L 3.5-5.0 Chloride 105 mmol/L 101-111 Co2 Carbon Dioxide 25 mmol/L 22-32 Anion Gap 7 mmol/L 2-11 Glucose 133 mg/dL High 70-100 Blood Urea Nitrogen 22 mg/dL 6-24 Creatinine 1.15 mg/dL 0.67-1.17 BUN/Creatinine Ratio 19.1 1 8-20 Calcium 8.4 mg/dL Low 8.6-10.3 Total Protein 5.9 g/dL Low 6.4-8.9 Albumin 3.7 g/dL 3.2-5.2 Globulin 2.2 g/dL 2-4 Albumin/Globulin Ratio 1.7 1 1-3 Total Bilirubin 0.40 mg/dL 0.2-1.0 Alkaline Phosphatase 59 U/L 34-104 Alt 20 U/L 7-52 Ast 16 U/L 13-39 Egfr Non- 62.2 1 Egfr 75.2 1 8 Lab Results 06/29/2019 N2N/CCD Import Magnesium 1.6 mg/dL Low 1.9-2.7 C Reactive Protein 48.28 mg/L High CBC Auto Diff 06/29/2019 N2N/CCD Import White Blood Count 7.0 10^3/uL 3.5-10.8 Red Blood Count 5.25 10^6/uL 4.18-5.48 Hemoglobin 15.4 g/dL 14.0-18.0 Hematocrit 46 % 42-52 Mean Corpuscular Volume 87 fL 80-94 Mean Corpuscular Hemoglobin 29 pg 27-31 Mean Corpuscular HGB Conc 34 g/dL 31-36 Red Cell Distribution Width 13 % 10-15 Platelet Count 189 10^3/uL 150-450 Mean Platelet Volume 7.7 fL 7.4-10.4 Abs Neutrophils 5.9 10^3/uL 1.5-7.7 Abs Lymphocytes 0.4 10^3/uL Low 1.0-4.8 Abs Monocytes 0.7 10^3/uL 0-0.8 Abs Eosinophils 0.0 10^3/uL 0-0.6 Abs Basophils 0.0 10^3/uL 0-0.2 Abs Nucleated RBC 0.0 10^3/uL Granulocyte % 84.0 % Lymphocyte % 6.4 % Monocyte % 9.5 % Eosinophil % 0.0 % Basophil % 0.1 % Nucleated Red Blood Cells % 0.0 1 1 [id number] 2 [id number] 3 RESULTS VERIFIED BY REPEAT ANALYSIS 4 RESULTS VERIFIED BY REPEAT ANALYSIS 5 Because ethnic data is not always readily available, this report includes an eGFR for both -Americans and non- Americans. The National Kidney Disease Education Program (NKDEP) does not endorse the use of the MDRD equation for patients that are not between the ages of 18 and 70, are , have extremes of body size, muscle mass, or nutritional status, or are non- or non-. According to the National Kidney Foundation, irrespective of diagnosis, the stage of the disease is based on the level of kidney function: Stage Description GFR(mL/min/1.73 m(2)) 1 Kidney damage with normal or decreased GFR 90 2 Kidney damage with mild decrease in GFR 60-89 3 Moderate decrease in GFR 30-59 4 Severe decrease in GFR 15-29 5 Kidney failure <15 (or dialysis) 6 SEE RESULT BELOW Name: ONEIL KIRKLAND JR : [address]: Za Suresh MD Acct: [id number] Unit: [id number] AGE: 73 Location: ED Re06/29/19 SEX: M Status: DEP ER SPEC: [id number] AIYANA: 06/29/[address]: Preet SALAS REQ: [id number] RECD: 06/29/19-1058 STATUS:CYNTHIA DE GUZMAN DR: Za Norton MD _ SOURCE: STOOL SPDESC: ORDERED: Stool Culture Procedure Result Reported Site Stool Culture Final 07/01/19- 0835 ML Result No enteric pathogens isolated Testing for Salmonella, Shigella, Aeromonas, Plesiomonas, Yersinia and Campylobacter are included in a Stool Culture. Vibrio spp not routinely tested for in a stool culture. If testing is desired, please request specifically when placing test order. Sensitivities not routinely performed on stool isolates, as antibiotics may prolong the carriage rate of bacteria. Please contact the microbiology lab if sensitivities are required. Stool Specimen Description Final 06/30/19701 ML Stool Color Brown Stool Form Nonformed Stool Consistency Liquid Shiga Toxin 1 2 Final 06/30/191323 ML Organism 1 Negative Shiga Toxin 1 2 CONTINUED ON NEXT PAGE DEPARTMENT OF PATHOLOGY, [address] [place] [address] Ghulam Vargas M.D. Director [facility] # [id number] Specimen: [id number] Collected: 06/29/19 Received: 06/29/19 (Continued) Procedure Result Reported Site Shiga Toxin 1 2 Final (continued) 06/30/191323 Immunochromatographic Assay. As with all diagnostic procedures, the laboratory results obtained should be used in conjunction with other clinical information available to the physician, including confirmation by another method, as applicable. * ML - Main Lab . END OF REPORT DEPARTMENT OF PATHOLOGY, [address] [place] [address] Ghulam Vargas M.D. Director [facility] # [id number] 7 [facility] Severe Sepsis and Septic Shock Management Bundle Measure requires all lactic acids initially measuring >2.0 mmol/L be repeated. 8 Because ethnic data is not always readily available, this report includes an eGFR for both -Americans and non- Americans. The National Kidney Disease Education Program (NKDEP) does not endorse the use of the MDRD equation for patients that are not between the ages of 18 and 70, are , have extremes of body size, muscle mass, or nutritional status, or are non- or non-. According to the National Kidney Foundation, irrespective of diagnosis, the stage of the disease is based on the level of kidney function: Stage Description GFR(mL/min/1.73 m(2)) 1 Kidney damage with normal or decreased GFR 90 2 Kidney damage with mild decrease in GFR 60-89 3 Moderate decrease in GFR 30-59 4 Severe decrease in GFR 15-29 5 Kidney failure <15 (or dialysis) Procedures Description No Information Available Medical Devices Description No Information Available Encounters Description No Information Available Assessments Date Code Description Provider 07/27/2019 R10.84 Generalized abdominal pain Farideh Cardona PA-C 07/27/2019 R19.4 Change in bowel habit Farideh Cardona PA-C Plan of Treatment No Information Available Functional Status Description No Information Available Mental Status Description No Information Available Referrals Description No Information Available
--- NOTE | 2019-09-01 08:05 | ED ---
Abdominal Pain/Male - HPI Summary HPI Summary: 74-year-old male with a significant past medical history of hyperlipidemia, lactose intolerance presents to emergency department today complaining of vomiting and diarrhea with abdominal pain which began this morning. Patient states he felt fine yesterday and awoke this morning and had two bouts of diarrhea and vomiting. Patient states she's been seen 3 times in the last 2 months for vomiting and diarrhea with associated hospital admission. Patient had an appointment to see his accounting generalist for these symptoms however due to being "fine" he canceled his appointment. Patient states she's never had abdominal surgery and denies fever or chills. Patient denies blood or pus per rectum. Patient denies chest pain, shortness of breath, rash, pain with urination. Family history and surgical history noncontributory. - History of Current Complaint Chief Complaint: EDAbdPain Stated Complaint: DIARREA AND VOMITING PER PT Time Seen by Provider: 09/01/19 08:05 Hx Obtained From: Patient Onset/Duration: Sudden Onset Timing: Intermittent, Lasting Seconds Severity Initially: Mild Severity Currently: Mild Pain Intensity: 4 Pain Scale Used: 0-10 Numeric Location: Diffuse, Discrete At: LLQ Radiates: No Character: Cramping Associated Signs And Symptoms: Positive: Nausea, Vomiting, Diarrhea. Negative: Constipation - Allergies/Home Medications Allergies/Adverse Reactions: Allergies Allergy/AdvReac Type Severity Reaction Status Date / Time No Known Allergies Allergy Verified 09/01/19 07:58 PMH/Surg Hx/FS Hx/Imm Hx Endocrine/Hematology History: Denies: Hx Anticoagulant Therapy, Hx Diabetes Cardiovascular History: Reports: Hx Hypercholesterolemia Denies: Hx Congestive Heart Failure, Hx Coronary Artery Disease, Hx Hypertension, Hx Pacemaker/ICD Respiratory History: Denies: Hx Asthma, Hx Chronic Obstructive Pulmonary Disease (COPD) GI History: Reports: Hx Obstructive Bowel History: Denies: Hx Renal Disease, Other Problems/Disorders - prostate issues Sensory History: Reports: Hx Contacts or Glasses Denies: Hx Hearing Aid Opthamlomology History: Reports: Hx Contacts or Glasses Psychiatric History: Denies: Hx Panic Disorder Infectious Disease History: No Infectious Disease History: Denies: Traveled Outside the [place] in Last 30 Days - Family History Known Family History: Positive: Other - parents CA, Non-Contributory Family History: mother with skin CA - Social History Alcohol Use: None Hx Substance Use: No Substance Use Type: Reports: None Hx Tobacco Use: No Smoking Status (MU): Former Smoker Review of Systems Constitutional: Negative Eyes: Negative ENT: Negative Cardiovascular: Negative Respiratory: Negative Positive: Abdominal Pain, Vomiting, Diarrhea, Nausea Genitourinary: Negative Musculoskeletal: Negative Skin: Negative Neurological: Negative Psychological: Normal All Other Systems Reviewed And Are Negative: Yes Physical Exam - Summary Physical Exam Summary: Inspection of the abdomen reveals no ecchymosis or masses. Auscultation reveals normoactive bowel sounds. Abdomen is mildly tender in the left lower quadrant with palpation. Negative Kendall, McBurney, psoas, obturator, Rovsing sign. No guarding or rigidity. Triage Information Reviewed: Yes Vital Signs On Initial Exam: Initial Vitals Temp Pulse Resp BP Pulse Ox 97.1 F 111 16 111/74 98 09/01/19 07:54 09/01/19 07:54 09/01/19 07:54 09/01/19 07:54 09/01/19 07:54 Vital Signs Reviewed: Yes Appearance: Positive: Well-Appearing, No Pain Distress, Well-Nourished Skin: Positive: Warm, Skin Color Reflects Adequate Perfusion Eyes: Positive: EOMI, DIAMOND ENT: Positive: Hearing grossly normal Respiratory/Lung Sounds: Positive: Clear to Auscultation, Breath Sounds Present Cardiovascular: Positive: RRR, S1, S2 Abdomen Description: Positive: No Organomegaly, Soft. Negative: CVA Tenderness (R), CVA Tenderness (L), Distended, Guarding, McBurney's Point Tenderness, Peritoneal Signs Bowel Sounds: Positive: Present Musculoskeletal: Positive: Strength/ROM Intact Neurological: Positive: Sensory/Motor Intact, Alert, Oriented to Person Place, Time, Normal Gait, Speech Normal Psychiatric: Positive: Normal, Affect/Mood Appropriate AVPU Assessment: Alert Procedures - Sedation Patient Received Moderate/Deep Sedation with Procedure: No Diagnostics - Vital Signs Vital Signs Temp Pulse Resp BP Pulse Ox 09/01/19 07:54 97.1 F 111 16 111/74 98 - Laboratory Result Diagrams: 09/01/19 09:00 09/01/19 09:00 Lab Statement: Any lab studies that have been ordered have been reviewed, and results considered in the medical decision making process. Abdominal Pain Male Course/Dx - Course Course Of Treatment: Patient was evaluated in the emergency department today for abdominal pain. Patient seen and examined his vitals are noted and he was afebrile. R studies returned showing mild leukocytosis with a white blood cell count 16.8 with a left shift. There were no other abnormalities. Abdominal x- ray shows no evidence of obstruction. Due to patient's history and laboratory results and vital signs he is likely experiencing viral gastroenteritis. Patient was told to rest and increase by mouth fluids and follow-up with his primary care physician 2-3 days. Patient agrees with this plan. - Diagnoses Differential Diagnosis/HQI/PQRI: Bowel Obstruction, Diverticulitis, Ischemic Bowel, Other - Viral gastroenteritis Provider Diagnoses: Gastroenteritis Discharge ED - Sign-Out/Discharge Documenting (check all that apply): Patient Departure - Discharge Plan Condition: Stable Disposition: HOME Patient Education Materials: Gastroenteritis (ED) Referrals: Herberth Norton MD [Primary Care Provider] - 3 Days Additional Instructions: You were seen in the emergency department today for abdominal pain. There is no evidence that your symptoms are due to a life-threatening or infectious process requiring intervention at this time. Your symptoms are likely due to a viral gastroenteritis and will resolve on its own shortly. There is no evidence of obstruction. Please be sure to increase fluid intake and rest. Please follow up with your primary care provider or accounting generalist in 3 days for further evaluation and management of your symptoms. Please return to the emergency department immediately if you develop any new or worsening symptoms. - Billing Disposition and Condition Condition: STABLE Disposition: Home
[2019-09-01 09:11] LABS: ABS Lymphocytes 1.4 10^3/ul (1.0-4.8); ABS Monocytes 0.6 10^3/ul (0-0.8); ABS Neutrophils 14.7 10^3/ul (1.5-7.7); Eosinophil % 0.1 %; Hematocrit 47 % (42-52); Hemoglobin 15.6 g/dL (14.0-18.0); Lymphocyte % 8.5 %; Mean Corpuscular HGB Conc 33 g/dL (31-36); Mean Corpuscular Hemoglobin 29 pg (27-31); Mean Corpuscular Volume 88 fL (80-94); Mean Platelet Volume 8.1 fL (7.4-10.4); Platelet Count 270 10^3/uL (150-450); Red Blood Count 5.31 10^6 /uL (4.18-5.48); Red Cell Distribution Width 14 % (10-15); White Blood Count 16.8 10^3/uL (3.5-10.8)
[2019-09-01 09:20] LABS: Albumin 4.2 g/dL (3.2-5.2); Calcium 9.6 mg/dL (8.6-10.3); Potassium 4.3 mmol/L (3.5-5.0); Total Bilirubin 0.6 mg/dL (0.2-1.0)
[2019-09-01 09:27] LABS: Albumin/Globulin Ratio 1.4 (1-3); BUN/Creatinine Ratio 21.2 (8-20); C Reactive Protein 5.07 mg/L (<8.01); EGFR African American 84.2 (>60); EGFR Non-African American 69.6 (>60); Globulin 2.9 g/dL (2-4); Total Protein 7.1 g/dL (6.4-8.9)
[2019-09-01 09:59] VITALS: BP 114/80
== END 2019-09-01 09:58 | disposition home or self-care (01) ==
LOC: ED 07:53
DX: K52.9 Noninfective gastroenteritis and colitis, unspecified (principal); E78.00 Pure hypercholesterolemia, unspecified; Z87.891 Personal history of nicotine dependence
CPT/HCPCS: 36415; 74019; 80053; 83605; 83690; 85025; 86140; 99282